=== PATIENT | female | born 1960 | race Caucasian/White ===

== ENCOUNTER 2021-12-15 09:01 | Outpatient (CLI) | payer BC ==
[2021-12-15 10:40] LABS: Hemoglobin 12.3 g/dL (12.0-15.5); Mean Corpuscular HGB CONC 32.2 g/dL (32.0-36.0); Mean Corpuscular Hemoglobin 28.5 pg (27.0-33.0); Mean Corpuscular Volume 88.6 fl (81.6-98.3); Mean Platelet Volume 9.6 fl (7.4-10.4); Platelet Count 336 10x3/uL (150-450); RBC Distribution Width 15.4 % (11.5-14.5); Red Blood Cell (RBC) Count 4.31 10x6/uL (3.90-5.03); White Blood Cell (WBC) Count 9.1 10x3/uL (3.5-10.5)
[2021-12-15 18:25] LABS: SARS-CoV-2 PCR by NAA Not Detected (NotDetected)
== END 2021-12-15 09:02 | disposition home or self-care (01) ==
LOC: CSHLAB 09:01
PROVIDERS: ATTEND Obstetrics & Gynecology
DX: Z01.812 Encounter for preprocedural laboratory examination (principal); Z20.822 Contact with and (suspected) exposure to COVID-19
CPT/HCPCS: 85027; 86850; 86900; 86901; U0003; U0005

== ENCOUNTER 2021-12-20 10:51 | Day surgery (SDC) | payer BC ==
[2021-12-15 10:40] LABS: Hemoglobin 12.3 g/dL (12.0-15.5); Mean Corpuscular HGB CONC 32.2 g/dL (32.0-36.0); Mean Corpuscular Hemoglobin 28.5 pg (27.0-33.0); Mean Corpuscular Volume 88.6 fl (81.6-98.3); Mean Platelet Volume 9.6 fl (7.4-10.4); Platelet Count 336 10x3/uL (150-450); RBC Distribution Width 15.4 % (11.5-14.5); Red Blood Cell (RBC) Count 4.31 10x6/uL (3.90-5.03); White Blood Cell (WBC) Count 9.1 10x3/uL (3.5-10.5)
[2021-12-15 14:35] VITALS: BMI 44.4
[2021-12-15 18:25] LABS: SARS-CoV-2 PCR by NAA Not Detected (NotDetected)
[2021-12-20] MEDS ORDERED: CeleCOXIB 100 MG CAP ONE (11:39)
[2021-12-20] MEDS ORDERED: Gabapentin 300 MG CAP ONE (11:39)
[2021-12-20] MEDS ORDERED: Lidocaine 1% MPF 2 ML VIAL ONE (11:40)
[2021-12-20] MEDS ORDERED: Famotidine/PF 20 mg/2ml Vial ONE (11:40)
[2021-12-20] MEDS ORDERED: Midazolam HCl 2 mg/2 ml Vial ONE (12:36)
[2021-12-20] MEDS ORDERED: PROPOFOL 40 ML ONE (12:36)
[2021-12-20] MEDS ORDERED: Fentanyl 100 MCG/2 ML VIAL ONE ×2 (12:36→13:43)
[2021-12-20] MEDS ORDERED: Dexamethasone 4 mg/ml Vial ONE (12:37)
[2021-12-20] MEDS ORDERED: Lidocaine 1% PF 5 ML VIAL ONE (12:37)
[2021-12-20] MEDS ORDERED: Ondansetron PF 4 MG/2 ML Vial ONE (12:37)
[2021-12-20] MEDS ORDERED: Levofloxacin 500 mg/D5W 100 ml Premix Bag ONE (12:50)
== END 2021-12-20 16:10 | disposition home or self-care (01) ==
LOC: CSHSDC 10:51
PROVIDERS: ATTEND Obstetrics & Gynecology
PROC: 0UB98ZX Excision of Uterus, Via Natural or Artificial Opening Endoscopic, Diagnostic (ICD-10-PCS; principal; 2021-12-20)
DX: N84.0 Polyp of corpus uteri (principal); N95.0 Postmenopausal bleeding; I10 Essential (primary) hypertension; E11.9 Type 2 diabetes mellitus without complications; E03.9 Hypothyroidism, unspecified; K21.9 Gastro-esophageal reflux disease without esophagitis; E66.01 Morbid (severe) obesity due to excess calories; Z68.41 Body mass index [BMI] 40.0-44.9, adult; Z87.891 Personal history of nicotine dependence; Z79.84 Long term (current) use of oral hypoglycemic drugs; Z79.890 Hormone replacement therapy; Z79.899 Other long term (current) drug therapy; Z88.0 Allergy status to penicillin; Z88.1 Allergy status to other antibiotic agents; Z88.5 Allergy status to narcotic agent; Z88.6 Allergy status to analgesic agent; Z91.040 Latex allergy status; Z20.822 Contact with and (suspected) exposure to COVID-19
CPT/HCPCS: 85027; 86850; 86900; 86901; 88305; J1100; J1956; J2250; J2405; J2704; J3010; S0028; U0003; U0005

== ENCOUNTER 2023-04-01 16:29 | Outpatient (CLI) | payer BC | END 2023-04-01 16:30 | disposition home or self-care (01) | LOC: CSHLAB 16:29 | PROVIDERS: ATTEND Obstetrics & Gynecology | DX: Z01.818 Encounter for other preprocedural examination (principal) | CPT/HCPCS: 80048; 85027; 86850; 86900; 86901; 93005; 93010 ==

== ENCOUNTER 2023-04-03 06:08 | Day surgery (SDC) | payer BC ==
[2023-04-01 17:12] VITALS: BMI 47.7
[2023-04-01 17:57] LABS: Hematocrit 41.8 % (34.9-44.5); Hemoglobin 13.6 g/dL (12.0-15.5); Mean Corpuscular HGB CONC 32.5 g/dL (32.0-36.0); Mean Corpuscular Volume 89.1 fl (81.6-98.3); Mean Platelet Volume 9.5 fl (7.4-10.4); Platelet Count 339 10x3/uL (150-450); RBC Distribution Width 15.8 % (11.5-14.5); Red Blood Cell (RBC) Count 4.69 10x6/uL (3.90-5.03)
[2023-04-01 18:14] LABS: Anion Gap 15 mmol/L (10-20); BUN (Urea Nitrogen) 16 mg/dL (9.8-20.1); Calc. Creatinine Clearance 0 mL/min (70-130); Calcium 9.4 mg/dL (7.8-10.44); Carbon Dioxide 31 mmol/L (22-29); Chloride 99 mmol/L (98-107); Estimated GFR 68; Glucose 102 mg/dL (70-105); Potassium 3.4 mmol/L (3.5-5.1); Sodium 142 mmol/L (136-145)
[2023-04-03] MEDS ORDERED: CeleCOXIB 100 MG CAP ONE (06:21)
[2023-04-03] MEDS ORDERED: Gabapentin 300 MG CAP ONE (06:22)
[2023-04-03] MEDS ORDERED: Famotidine/PF 20 mg/2ml Vial ONE (06:22)
[2023-04-03] MEDS ORDERED: EPINEPHrine 1 MG/ML VIAL ONE (06:31)
[2023-04-03] MEDS ORDERED: Bupivacaine PF 0.5% 30 ML VIAL ONE (06:32)
[2023-04-03] MEDS ORDERED: Midazolam HCl 2 mg/2 ml Vial ONE (07:05)
[2023-04-03] MEDS ORDERED: PROPOFOL 40 ML ONE (07:05)
[2023-04-03] MEDS ORDERED: Fentanyl 250 MCG/5 ML VIAL ONE (07:05)
[2023-04-03] MEDS ORDERED: Lidocaine 2% PF 5 ML VIAL ONE (07:06)
[2023-04-03] MEDS ORDERED: Rocuronium Bromide 10 MG/ML (10ML VIAL) ONE (07:06)
[2023-04-03] MEDS ORDERED: Glycopyrrolate 0.2 MG/ML 5 ML SYRINGE ONE (07:06)
[2023-04-03] MEDS ORDERED: PHENYLEPHRINE-NS 100 MCG/ML 10 ML SYRINGE ONE (07:06)
[2023-04-03] MEDS ORDERED: Ketorolac Tromethamine 30 MG/ML VIAL ONE (07:06)
[2023-04-03] MEDS ORDERED: Ondansetron PF 4 MG/2 ML Vial ONE ×2 (07:06→10:07)
[2023-04-03] MEDS ORDERED: Dexamethasone 4 mg/ml Vial ONE (07:06)
[2023-04-03] MEDS ORDERED: metroNIDAZOLE 500 MG/100 ML BAG ONE (07:28)
[2023-04-03] MEDS ORDERED: CEFAZOLIN 2 GM VIAL ONE (07:28)
[2023-04-03] MEDS ORDERED: SUGAMMADEX SODIUM 200 MG/2 ML VIAL ONE (08:20)
[2023-04-03] MEDS ORDERED: traMADol HCl 50 MG TAB ONE (10:30)
== END 2023-04-03 12:50 | disposition home or self-care (01) ==
LOC: CSHSDC 06:08
PROVIDERS: ATTEND Obstetrics & Gynecology
PROC: 0UT94ZZ Resection of Uterus, Percutaneous Endoscopic Approach (ICD-10-PCS; principal; 2023-04-03)
PROC: 0UB24ZZ Excision of Bilateral Ovaries, Percutaneous Endoscopic Approach (ICD-10-PCS; principal; 2023-04-03)
PROC: 0UB74ZZ Excision of Bilateral Fallopian Tubes, Percutaneous Endoscopic Approach (ICD-10-PCS; principal; 2023-04-03)
DX: D25.9 Leiomyoma of uterus, unspecified (principal); N80.03 Adenomyosis of the uterus; N87.0 Mild cervical dysplasia; N88.8 Other specified noninflammatory disorders of cervix uteri; N84.0 Polyp of corpus uteri; N95.0 Postmenopausal bleeding; I10 Essential (primary) hypertension; E11.9 Type 2 diabetes mellitus without complications; E78.5 Hyperlipidemia, unspecified; G47.00 Insomnia, unspecified; E66.01 Morbid (severe) obesity due to excess calories; Z68.42 Body mass index [BMI] 45.0-49.9, adult; Z88.1 Allergy status to other antibiotic agents; Z88.0 Allergy status to penicillin; Z88.6 Allergy status to analgesic agent; Z91.040 Latex allergy status; Z91.041 Radiographic dye allergy status; Z79.899 Other long term (current) drug therapy
CPT/HCPCS: 80048; 85027; 86850; 86900; 86901; 88307; C9250; J0171; J1100; J1885; J2001; J2250; J2405; J2704; J3010; S0020; S0028